=== PATIENT | female | born 1965 | race Caucasian/White ===

== ENCOUNTER 2021-09-18 15:15 | Emergency (ER) | payer MEDICAID ==
[~2021-09-18] VITALS: Ht 162.6 cm; Wt 88.6 kg
[2021-09-18] MEDS: ACETAMINOPHEN 500 MG TABLET PO ONE (17:56)
[2021-09-18 18:51] VITALS: BP 138/79
== END 2021-09-18 19:32 | disposition home or self-care (01) ==
LOC: EMS 15:29
DX: S00.93XA Contusion of unspecified part of head, initial encounter (principal); F07.81 Postconcussional syndrome; W22.8XXA Striking against or struck by other objects, initial encounter; Y93.89 Activity, other specified; Y92.89 Other specified places as the place of occurrence of the external cause; Y99.8 Other external cause status
CPT/HCPCS: 70450; 99284